=== PATIENT | female | born 1930 | race Caucasian/White ===

== ENCOUNTER 2016-04-26 09:35 | Inpatient (IN) | payer MEDICARE, OTHER ==
[~2016-04-26] VITALS: Ht 154.9 cm; Wt 79.8 kg
[2016-04-26] MEDS ORDERED: CEFTRIAXONE 1 GM/50 ML (PMX) 50 ML IVPB STA (10:13)
[2016-04-26] MEDS ORDERED: SODIUM CHLORIDE 0.9% 1L BAG IV* STA (10:13)
[2016-04-26] MEDS ORDERED: ENAL20TA PO (10:38)
[2016-04-26] MEDS ORDERED: LINA1TAB PO (10:38)
[2016-04-26] MEDS ORDERED: ASPI-664 PO (10:38)
[2016-04-26] MEDS ORDERED: PYRI50CA PO (10:39)
[2016-04-26] MEDS ORDERED: LYRI100 PO (10:39)
[2016-04-26] MEDS ORDERED: CELE100C PO (10:39)
[2016-04-26] MEDS ORDERED: METO100T13 PO (10:40)
--- NOTE | 2016-04-26 11:11 | RADRPT ---
PROCEDURE: XR Chest. CLINICAL INDICATION: Fever TECHNIQUE: Single frontal chest x-ray. COMPARISON: None. FINDINGS: There is mild bibasilar atelectasis. No acute infiltrate, pleural effusion or pneumothorax is ident ified. Cardiomediastinal silhouette is within normal limits. Aortic atherosclerotic calcification is noted. The osseous structures are remarkable for degenerative spondylosis of the spine. IMPRESSION: 1. Mild bibasilar atelectasis. 2. Aortic atherosclerosis. 3. No evidence of acute cardiopulmonary process. RPTAT: QQ .Tomas Gleason MD, Date Time Electronically viewed and signed by .Tomas Gleason MD, on 04/26/2016 11:10 .R/
[2016-04-26 11:17] LABS: ADD UMIC YES; URINE BILIRUBIN (Dip) NEGATIVE (NEGATIVE); URINE BLOOD (Dip) 3+ (NEGATIVE); URINE COLOR LT. YELLOW (YELLOW); URINE GLUCOSE (Dip) NEGATIVE (NEGATIVE); URINE KETONES (Dip) NEGATIVE (NEGATIVE); URINE LEUKOCYTE ESTERASE (Dip) 2+ (NEGATIVE); URINE NITRITE (Dip) POSITIVE (NEGATIVE); URINE TOTAL PROTEIN (Dip) 1+ (NEGATIVE); URINE UROBILINOGEN (Dip) 0.2 E.U./dL (0.1-1.0)
[2016-04-26 11:33] LABS: CHLORIDE 99 mmol/L (97-110); INR 1.11; PROTIME 14.3 Sec (12.2-14.2); PT RATIO 1.1
[2016-04-26 11:34] LABS: PARTIAL THROMBOPLASTIN TIME 28.1 Sec (25.0-35.0); SODIUM 140 mmol/L (135-144)
[2016-04-26 11:35] LABS: BACTERIA,URINE MODERATE; BASOPHILS % 0.3 % (0.0-2.0); EOSINOPHILS % 0.2 % (0.0-7.0); HEMOGLOBIN 12.3 g/dl (12.0-16.0); LYMPHOCYTES % 10.2 % (15.0-51.0); MEAN CORPUSCULAR HEMOGLOBIN 29.4 pg (29.0-33.0); MEAN CORPUSCULAR HGB CONC 33.2 g/dl (32.0-37.0); MEAN CORPUSCULAR VOLUME 88.3 fl (82.0-101.0); MEAN PLATELET VOLUME 12.2 fl (7.4-10.4); MONOCYTE # 1.4 10^3/ul (0.3-0.9); MONOCYTES % 14.6 % (0.0-11.0); NEUTROPHIL # 7.1 10^3/ul (1.6-7.5); NEUTROPHILS % 74.2 % (39.0-77.0); PLATELET COUNT 177 10^3/UL (140-415); RED BLOOD COUNT 4.19 10^6/ul (4.20-5.40); RED CELL DISTRIBUTION WIDTH 12.5 % (11.5-14.5); SQUAMOUS EPITHELIAL CELL,UR FEW; WHITE BLOOD COUNT 9.6 10^3/ul (4.8-10.8)
[2016-04-26 11:36] LABS: ALANINE AMINOTRANSFERASE 34 IU/L (13-69); ALBUMIN/GLOBULIN RATIO 1.25; ALKALINE PHOSPHATASE 84 IU/L (42-121); ANION GAP 19 (8-16); ASPARTATE AMINO TRANSFERASE 30 IU/L (15-46); BILIRUBIN,INDIRECT 0.4 mg/dl (0-1.1); BILIRUBIN,TOTAL 0.4 mg/dl (0.2-1.3); BLOOD UREA NITROGEN 17 mg/dl (7-20); CARBON DIOXIDE 26 mmol/L (21-31); CREATININE 0.57 mg/dl (0.44-1.00); GLUCOSE 154 mg/dl (70-220); TOTAL PROTEIN 7.2 g/dl (6.1-8.1)
[2016-04-26 11:37] LABS: CALCIUM 9.1 mg/dl (8.4-10.2)
[2016-04-26 11:57] LABS: TROPONIN-I < 0.012 ng/ml (0.00-0.12)
[2016-04-26] MEDS ORDERED: ACETAMINOPHEN 325 MG TAB PO PRN ×2 (13:30→14:30)
[2016-04-26] MEDS ORDERED: ONDANSETRON 4 MG INJ IV PRN ×2 (13:30→14:30)
[2016-04-26] MEDS ORDERED: MAGNESIUM HYDROXIDE 30ML CUP PO PRN (14:30)
[2016-04-26] MEDS ORDERED: hydrALAzine 20 MG INJ IV PRN (14:30)
[2016-04-26] MEDS ORDERED: BISACODYL (EC) 5 MG TAB PO PRN (14:30)
[2016-04-26] MEDS ORDERED: NACL 0.9% 3 ML SYG IV SCH (14:30)
[2016-04-26] MEDS ORDERED: HYDROCODONE/APAP (5/325) TAB PO PRN (14:30)
[2016-04-26] MEDS ORDERED: morphine 2 MG INJ IV PRN (14:30)
--- NOTE | 2016-04-26 14:35 | ERA ---
ER Documentation Chief Complaint Date/Time DATE: 04/26/16 TIME: 14:32 Chief Complaint Sent from MD for eval and labwork request fever HPI Patient is an 86-year-old female with hypertension and diabetes who presents with fever. The patient has had flank pain and pain with urination as well. The patient went to see the primary doctor today who sent the patient to the emergency department for a pyelonephritis. The symptoms have been constant. The symptoms have been there for the past 3 days. ROS All systems reviewed and are negative except as per history of present illness. Medications Home Meds Reported Medications Metoprolol Succinate* (Toprol XL*) 100 Mg Tab.sr.24h, 100 MG PO DAILY, #30 TAB 04/26/16 Celecoxib* (Celebrex*) 100 Mg Capsule, 100 MG PO DAILY, CAP 04/26/16 Pregabalin* (Lyrica*) 100 Mg Capsule, 100 MG PO BID, CAP 04/26/16 Pyridoxine Hcl* (Vitamin B-6*) 50 Mg Capsule, 50 MG PO DAILY, CAP 04/26/16 Enalapril Maleate* (Enalapril Maleate*) 20 Mg Tablet, 20 MG PO DAILY, TAB 04/26/16 Aspirin* (Aspirin* EC) 81 Mg Tablet.dr, 81 MG PO DAILY, TAB 04/26/16 Linagliptin-Metformin (Jentadueto) 2.5-500 Mg Tablet, 1 TAB PO BID, TAB 04/26/16 Allergies Allergies: Coded Allergies: No Known Allergy (Unverified , 04/26/16) PMhx/Soc Positive for hypertension and diabetes FmHx Family History: No diabetes Physical Exam Vitals Vital Signs Date Time Temp Pulse Resp B/P Pulse Ox O2 Delivery O2 Flow Rate FiO2 04/26/16 10:51 Nasal Cannula 04/26/16 09:52 100.7 107 20 144/67 95 Physical Exam Const: No acute distress Head: Atraumatic Eyes: Normal Conjunctiva ENT: Normal External Ears, Nose and Mouth. Neck: Full range of motion..~ No meningismus. Resp: Clear to auscultation bilaterally Cardio: Tachycardic rate Abd: Soft, non tender, non distended. Normal bowel sounds Skin: Pale Back: No midline or flank tenderness Ext: No cyanosis, or edema Neur: Awake and alert Psych: Normal Mood and Affect Result Diagram: 04/26/16 1031 04/26/16 1031 Results 24 hrs Laboratory Tests Test 04/26/16 10:31 04/26/16 12:19 Activated Partial Thromboplast Time 28.1Sec Alanine Aminotransferase (ALT/SGPT) 34IU/L Albumin 4.0g/dl Albumin/Globulin Ratio 1.25 Alkaline Phosphatase 84IU/L Anion Gap 19 Aspartate Amino Transf (AST/SGOT) 30IU/L Basophils # 0.010^3/ul Basophils % 0.3% Blood Urea Nitrogen 17mg/dl Calcium Level 9.1mg/dl Carbon Dioxide Level 26mmol/L Chloride Level 99mmol/L Creatinine 0.57mg/dl Direct Bilirubin 0.00mg/dl Eosinophils # 0.010^3/ul Eosinophils % 0.2% Globulin 3.20g/dl Glucose Level 154mg/dl Hematocrit 37.0% Hemoglobin 12.3g/dl INR International Normalized Ratio 1.11 Indirect Bilirubin 0.4mg/dl Lactic Acid Level 1.0mmol/L 1.1mmol/L Lymphocytes # 1.010^3/ul Lymphocytes % 10.2% Mean Corpuscular Hemoglobin 29.4pg Mean Corpuscular Hemoglobin Concent 33.2g/dl Mean Corpuscular Volume 88.3fl Mean Platelet Volume 12.2fl Monocytes # 1.410^3/ul Monocytes % 14.6% Neutrophils # 7.110^3/ul Neutrophils % 74.2% Nucleated Red Blood Cells # 0.010^3/ul Nucleated Red Blood Cells % 0.0/100WBC Platelet Count 52118^3/UL Potassium Level 4.0mmol/L Prothrombin Time 14.3Sec Prothrombin Time Ratio 1.1 Red Blood Count 4.1910^6/ul Red Cell Distribution Width 12.5% Sodium Level 140mmol/L Total Bilirubin 0.4mg/dl Total Protein 7.2g/dl Troponin I < 0.012ng/ml Urine Bacteria MODERATE Urine Bilirubin NEGATIVE Urine Clarity CLEAR Urine Color LT. YELLOW Urine Glucose NEGATIVE% Urine Hemoglobin 3+ Urine Ketones NEGATIVE Urine Leukocyte Esterase 2+ Urine Microscopic RBC 5-10/HPF Urine Microscopic WBC 10-25/HPF Urine Nitrite POSITIVE Urine Specific [place] 1.020 Urine Squamous Epithelial Cells FEW Urine Total Protein 1+ Urine Urobilinogen 0.2 E.U./dL Urine pH 5.5 White Blood Count 9.610^3/ul Current Medications Medications (Trade) Dose Ordered Sig/Boby Route PRN Reason Start Time Stop Time Status Last Admin Dose Admin Sodium Chloride 2220 ml 2,220 ml BOLUS OVER 2 HOURS STAT IV* 04/26/16 10:13 04/26/16 10:15 DC 04/26/16 10:46 Ceftriaxone Sodium (Rocephin) 50 ml @ 100 mls/hr ONCE STAT IVPB 04/26/16 10:13 04/26/16 10:43 DC 04/26/16 10:46 Procedures/MDM EKG read by me: Rate/Rhythm: Regular rate and rhythm at a normal rate Intervals: Normal Impression: No evidence of ischemia or arrhythmia Chest x-ray shows no pneumonia per radiology. Admit MDM: Patient's infectious symptoms have not stabilized and the patient is at risk of rapid decompensation. The patient will be admitted for careful hydration, antibiotic therapy, and infectious source control. Severe Sepsis criteria: Infectious source: pyelonephritis End organ damage indicated by: No end organ damage at this time Sepsis Management: Time of recognition of sepsis: 10:31 Within 3 hours of recognition: Blood cultures x 2 before broad-spectrum antibiotics: Yes 30 ml/kg NS bolus Completed Initial lactate 1.0 Repeat lactate 1.1 Time of recognition of septic shock: No septic shock Septic Shock Assessment: Any lactic acid > 4.0 No Persistent hypotension (SBP < 90 or 40 mmHg drop, MAP < 65) despite 30 mL/kg IV fluid bolus No Volume Re-assessment for Septic Shock (post 30 ml/kg bolus): No septic shock at this time Persistent Hypotension Treatment: Comfort care No Central line Not Required Vasopressor started Not required I considered further perfusion assessment with CVP measurement, SCVO2, bedside ultrasound volume assessment, passive leg raise, trial of further fluid bolus. And proceeded with 30 ml/kg fluid bolus of NSS, broad spectrum antibiotics, and admission. Accepting Care Team Current data and ongoing care discussed. Admitting Physician: Dr. Mckeon Dryer Operator(s): None Outstanding Data: Culture results Critical Care: Critical care time 35 minutes excluding all billable procedures Emergent fluid management while maintaining close respiratory support. Provision of immediate and broad-spectrum antibiotic therapy. Simultaneous assessment for possible sources in order to direct targeted therapy. Consideration for invasive and chemical support to prevent cardiopulmonary collapse. Departure Diagnosis: Primary Impression: Pyelonephritis Additional Impression: Sepsis Qualified Code: A41.9 - Sepsis, due to unspecified organism Condition: DOMINGO Olivia MD Apr 26, 2016 14:35
--- NOTE | 2016-04-26 14:38 | HP ---
Date/Time of Note Date/Time of Note DATE: 04/26/16 TIME: 14:34 Assessment/Plan VTE Prophylaxis VTE Prophylaxis Intervention: LMWH Assessment/Plan Assessment/Plan 1. Systemic inflammatory response syndrome with fever and sinus tachycardia. Etiology unclear. Most probably secondary to underlying urinary tract infection. The patient will be started on empiric antibiotics. Pancultures will be obtained. Influenza A and B screen will be done. The patient has no evidence of any septic shock at this time. The patient will be adequately hydrated. 2. Suspected urinary tract infection. Positive urinalysis. No evidence of any pyelonephritis on physical examination. Continue empiric antibiotics. Await final urine cultures. 3. Essential hypertension. The patient will be started on antihypertensives. She will also be started on as needed antihypertensives for any systolic blood pressure readings greater than 160 mmHg. 4. Type 2 diabetes mellitus. The patient's home antidiabetic medications will be resumed. A hemoglobin A1c will be obtained to evaluate the blood glucose control over the past few weeks. Plan: The patient will be admitted to inpatient medical surgical floor. The patient will be started on a carbohydrate controlled diet. The patient will be started on DVT prophylaxis and gastrointestinal prophylaxis. The patient will remain a full code. Activities will be as tolerated. The rest of the patient's management will be based on the clinical course and the results of diagnostic studies. Based on the patient's clinical presentation, she most probably requires at least 1 midnight's stay for further management and evaluation of her clinical presentation. The case and management of this patient was fully discussed with . Approximately 50 minutes was spent on the history and physical of this patient. HPI/ROS Admit Date/Time Admit Date/Time Apr 26, 2016 at 13:26 Hx of Present Illness Reason for admission: Sent in by primary care physician because of suspected pyelonephritis. This is a 86-year-old [place] female with past medical history of essential hypertension, nephrolithiasis, and type 2 diabetes mellitus who went to see her primary care physician because of fevers and shakiness that has been going on for the past 3 days. The patient denied any recent sick contacts. The patient denied any cough, runny nose, dyspnea, headaches, diarrhea, dysuria, hematuria, or pyuria. The patient denied any flank pain. She denied any headache. In the emergency room, the patient's urinalysis showed positive nitrate and positive leukocyte esterase with urine microscopic WBC of 10-25. The patient was also noticed to be febrile in the emergency room. The patient's WBC was within normal limits. The patient's renal function was within normal limits. The patient underwent a chest x-ray in the emergency room that showed mild bibasilar atelectasis and no evidence of any acute cardiopulmonary process. The patient's 12-lead EKG showed sinus tachycardia. Pancultures were obtained on this patient and the patient was given a single dose of IV ceftriaxone and IV fluids. The patient's lactic acid level was within normal limits. ROS Constitutional: chills, febrile Eyes: no complaints ENT: no complaints Respiratory: no complaints Cardiovascular: no complaints Gastrointestinal: no complaints Genitourinary: no complaints Musculoskeletal: no complaints Skin: no complaints Neurologic: no complaints Endocrine: no complaints Lymphatic: no complaints Psychological: no complaints Immunologic: no complaints PMH/Family/Social Past Medical History Medical History: diabetes, hypertension, other (Nephrolithiasis) Past Surgical History Past Surgical Hx: other (Lithotripsy) Social History The patient lives with her and son. Alcohol Use: none Smoking Status: Never smoker Drug Use: none Exam/Review of Systems Vital Signs Vitals Vital Signs Date Time Temp Pulse Resp B/P Pulse Ox O2 Delivery O2 Flow Rate FiO2 04/26/16 10:51 Nasal Cannula 04/26/16 09:52 100.7 107 20 144/67 95 Exam Exam General: Overweight, 86 year-old female lying in bed in no apparent distress. HEENT: Normocephalic, atraumatic. Eyes: Anicteric sclerae, conjunctivae clear. ENT: Nasal septum midline, oral mucosa moist. Neck supple, no JVD noticed. Respiratory: Bilaterally clear breath sounds. No use of accessory muscles of respiration. No adventitious breath sounds. Cardiovascular: S1, S2 heard. No murmurs or gallops. Abdomen: Soft, nontender, and nondistended. Bowel sounds positive in all 4 quadrants. Genitourinary: Deferred. Extremities: No cyanosis, no clubbing, no edema. Peripheral pulses palpable. Neurologic: Cranial nerves II through XII grossly intact. The patient is awake, alert, and oriented. Skin: Normal skin turgor. No skin rashes. Labs Result Diagram: 04/26/16 1031 04/26/16 1031 Medications Medications Current Medications Sodium Chloride (NS) 1,000 ml @ 100 mls/hr Q10H IV ; Start 04/26/16 at 14:21; Status UNV Ondansetron HCl (Zofran Inj) 4 mg Q6H PRN IV NAUSEA AND/OR VOMITING; Start 04/26 at 14:30; Status UNV Acetaminophen (Tylenol Tab) 650 mg Q6H PRN PO PAIN LEVEL 1-3 OR FEVER; Start at 14:30; Status UNV Acetaminophen/ Hydrocodone Bitart ([place] (5/325)) 1 tab Q6H PRN PO MODERATE PAIN LEVEL 4-6; Start 04/26/16 at 14:30; Status UNV Morphine Sulfate (morphine) 2 mg Q4H PRN IV SEVERE PAIN LEVEL 7-10; Start at 14:30; Status UNV Magnesium Hydroxide (Milk Of Mag) 30 ml DAILY PRN PO CONSTIPATION; Start at 14:30; Status UNV Bisacodyl (Dulcolax) 5 mg DAILY PRN PO CONSTIPATION; Start 04/26/16 at 14:30; Status UNV Famotidine (Pepcid) 20 mg Q12 PO ; Start 04/26/16 at 21:00; Status UNV Enoxaparin Sodium (Lovenox) 40 mg DAILY SC ; Start 04/27/16 at 09:00; Status UNV Hydralazine HCl 10 mg 10 mg Q6H PRN IV SBP>160; Start 04/26/16 at 14:30; Status UNV Ceftriaxone Sodium (Rocephin) 50 ml @ 100 mls/hr Q24H IVPB ; Start 04/26/16 at 14:30; Status UNV Procedures Procedures CXR IMPRESSION: 1. Mild bibasilar atelectasis. 2. Aortic atherosclerosis. 3. No evidence of acute cardiopulmonary process. Twelve-Lead EKG Sinus tachycardia. GLENROY KENYON NP Apr 26, 2016 14:38 GLENROY KENYON NP Apr 26, 2016 14:38
[2016-04-26] MEDS: CEFTRIAXONE 1 GM/50 ML (PMX) 50 ML IVPB SCH (14:59)
[2016-04-26] MEDS: SOD CHLORIDE 0.9% 1,000 ML IV SCH (14:59)
[2016-04-26 15:00] VITALS: BP 170/77; PULSE 111; RESP 24
[2016-04-26] MEDS ORDERED: DEXTROSE 50% 50 ML SYRINGE IV PRN ×2 (15:00)
[2016-04-26] MEDS ORDERED: GLUCOSE GEL 15 GRAM TUBE PO PRN ×2 (15:00)
[2016-04-26] MEDS ORDERED: GLUCOSE GEL 15 GRAM TUBE BUCCAL PRN (15:00)
[2016-04-26] MEDS ORDERED: GLUCAGON 1 MG INJ IM PRN (15:00)
[2016-04-26 15:30] VITALS: Ht 154.9 cm; Wt 79.8 kg
[2016-04-26 16:34] VITALS: BP 155/71; PULSE 108
[2016-04-26 20:01] VITALS: BP 140/63; RESP 20
[2016-04-26] MEDS: metFORMIN 500 MG TAB PO SCH (20:12)
[2016-04-26] MEDS: PREGABALIN 100 MG CAP PO SCH (20:12)
[2016-04-26] MEDS: FAMOTIDINE 20 MG TAB PO SCH (20:12)
[2016-04-26] MEDS: LINAGLIPTIN 5 MG TABLET PO SCH (20:12)
[2016-04-26] MEDS ORDERED: ALBUTEROL/IPRATROPIUM (NEB) 3 ML AMP HHN PRN (20:30)
[2016-04-26] MEDS ORDERED: SOD CHLORIDE 0.9% 500 ML IV ONE (20:30)
[2016-04-26] MEDS: ZOLPIDEM 5 MG TAB PO PRN (20:40)
[2016-04-26 23:25] VITALS: BP 134/63; PULSE 97
[2016-04-27] MEDS: SOD CHLORIDE 0.9% 1,000 ML IV SCH ×4 (00:21→18:53)
[2016-04-27 06:16] LABS: ADD SCAN DIFF NO; BASOPHILS % 0.4 % (0.0-2.0); EOSINOPHILS # 0.1 10^3/ul (0.0-0.5); EOSINOPHILS % 0.7 % (0.0-7.0); HEMATOCRIT 33.1 % (37.0-47.0); HEMOGLOBIN 10.5 g/dl (12.0-16.0); LYMPHOCYTES % 13.2 % (15.0-51.0); MEAN CORPUSCULAR HEMOGLOBIN 29.2 pg (29.0-33.0); MEAN CORPUSCULAR HGB CONC 31.7 g/dl (32.0-37.0); MEAN CORPUSCULAR VOLUME 92.2 fl (82.0-101.0); MEAN PLATELET VOLUME 11.6 fl (7.4-10.4); MONOCYTE # 1.3 10^3/ul (0.3-0.9); MONOCYTES % 17.8 % (0.0-11.0); NEUTROPHILS % 67.5 % (39.0-77.0); PLATELET COUNT 153 10^3/UL (140-415); RED BLOOD COUNT 3.59 10^6/ul (4.20-5.40); RED CELL DISTRIBUTION WIDTH 12.7 % (11.5-14.5); WHITE BLOOD COUNT 7.4 10^3/ul (4.8-10.8)
[2016-04-27 06:32] LABS: POTASSIUM 3.9 mmol/L (3.5-5.1)
[2016-04-27 06:34] LABS: CREATININE 0.55 mg/dl (0.44-1.00)
[2016-04-27 06:35] LABS: ALBUMIN/GLOBULIN RATIO 1.11; BILIRUBIN,INDIRECT 0.2 mg/dl (0-1.1); BILIRUBIN,TOTAL 0.2 mg/dl (0.2-1.3); CALCIUM 8.2 mg/dl (8.4-10.2); TOTAL PROTEIN 5.7 g/dl (6.1-8.1)
[2016-04-27 06:43] LABS: CHOL/HDL RATIO 5.2 RATIO; MAGNESIUM 1.5 mg/dl (1.7-2.5)
--- NOTE | 2016-04-27 07:06 | RADRPT ---
PROCEDURE: US Retroperitoneum. CLINICAL INDICATION: Abnormal renal function. TECHNIQUE: Multiple sonographic images of the retroperitoneum were obtained. Evaluation of the ki dneys and bladder was performed using a curved array transducer. The images were reviewed on a PACS workstation. COMPARISON: No prior studies are available for comparison. FINDINGS: The right kidney measures 10.5 centimeters and the left kidney measures 12.1 centimeters. No hydro nephrosis or renal calculi are seen. The kidneys are normal in echogenicity. A 4 cm probable simp le cyst is seen in the upper pole of the left kidney. The bladder is unremarkable in appearance. IMPRESSION: Probable simple left renal cyst. Otherwise unremarkable study.. RPTAT: HLBE Physician Beatrice Date Time Electronically viewed and signed by Sherine Varela Physician on 04/27/2016 07:06 LE/
[2016-04-27] MEDS ORDERED: MAGNESIUM SULFATE 2 GM/50 ML 50 ML IVPB ONE ×2 (07:30)
[2016-04-27 07:37] VITALS: BP 122/56; RESP 18
[2016-04-27] MEDS: PREGABALIN 100 MG CAP PO SCH ×2 (09:33→21:07)
[2016-04-27] MEDS: CELECOXIB 100 MG CAP PO SCH (09:33)
[2016-04-27] MEDS: ASPIRIN (EC) 81 MG TAB PO SCH (09:34)
[2016-04-27] MEDS: PYRIDOXINE 50 MG TAB PO SCH (09:34)
[2016-04-27] MEDS: FAMOTIDINE 20 MG TAB PO SCH ×2 (09:35→21:10)
[2016-04-27] MEDS: LINAGLIPTIN 5 MG TABLET PO SCH ×2 (09:35→21:11)
[2016-04-27] MEDS: METOPROLOL (XL) 100 MG TAB PO SCH (09:35)
[2016-04-27] MEDS: metFORMIN 500 MG TAB PO SCH ×2 (09:36→21:00)
[2016-04-27] MEDS: ENALAPRIL 20 MG TAB PO SCH (09:36)
[2016-04-27] MEDS: ENOXAPARIN 40 MG/0.4 ML SYG SC SCH (10:06)
--- NOTE | 2016-04-27 10:25 | PN ---
Date/Time of Note Date/Time of Note DATE: 04/27/16 TIME: 10:22 Assessment/Plan VTE Prophylaxis VTE Prophylaxis Intervention: LMWH Lines/Catheters IV [facility] Peripheral IV Assessment/Plan Chief Complaint/Hosp Course 1. Systemic inflammatory response syndrome with fever and sinus tachycardia. Etiology unclear. Most probably secondary to underlying urinary tract infection. Pancultures pending. Influenza A and B screen negative. The patient has no evidence of any septic shock at this time. The patient will be adequately hydrated. 2. Suspected urinary tract infection. Positive urinalysis. No evidence of any pyelonephritis on physical examination or renal ultrasound. Continue empiric antibiotics. Await final urine cultures. 3. Essential hypertension. The patient will be continued on antihypertensives including PRN antihypertensives for any systolic blood pressure readings greater than 160 mmHg. 4. Type 2 diabetes mellitus. The patient on home antidiabetic regimen. Pending hemoglobin A1c. 5. Fluids, electrolytes, and nutrition. Carbohydrate controlled diet. 6. DVT prophylaxis. Subcutaneous Lovenox. 7. Gastrointestinal prophylaxis. Histamine 2 receptor blockers. 8. Plan. Continue empiric antibiotics. Await final cultures. Replete magnesium. Case discussed with Dr. Srinivasan. Plan of care was explained to the patient's son who was at the bedside. Problems: Subjective 24 Hr Interval Summary Free Text/Dictation Had a low grade fever in the AM. Exam/Review of Systems Vital Signs Vitals Vital Signs Date Time Temp Pulse Resp B/P Pulse Ox O2 Delivery O2 Flow Rate FiO2 04/27/16 07:37 99.4 85 18 122/56 99 04/26/16 23:25 Nasal Cannula 2.0 Intake and Output 04/26/16 04/26/16 04/27/16 14:59 22:59 06:59 Intake Total 760 ml 2190 ml Output Total 1250 ml Balance 760 ml 940 ml Exam General: Overweight, 86 year-old female lying in bed in no apparent distress. HEENT: Normocephalic, atraumatic. Eyes: Anicteric sclerae, conjunctivae clear. ENT: Nasal septum midline, oral mucosa moist. Neck supple, no JVD noticed. Respiratory: Bilaterally clear breath sounds. No use of accessory muscles of respiration. No adventitious breath sounds. Cardiovascular: S1, S2 heard. No murmurs or gallops. Abdomen: Soft, nontender, and nondistended. Bowel sounds positive in all 4 quadrants. Genitourinary: Deferred. Extremities: No cyanosis, no clubbing, no edema. Peripheral pulses palpable. Neurologic: Cranial nerves II through XII grossly intact. The patient is awake, alert, and oriented. Skin: Normal skin turgor. No skin rashes. Results Result Diagram: 04/27/16 0525 04/27/16 0525 Results 24 hrs Laboratory Tests Test 04/26/16 10:31 04/26/16 12:19 04/26/16 14:45 04/26/16 20:10 Activated Partial Thromboplast Time 28.1 Alanine Aminotransferase (ALT/SGPT) 34 Albumin 4.0 Albumin/Globulin Ratio 1.25 Alkaline Phosphatase 84 Anion Gap 19 H Aspartate Amino Transf (AST/SGOT) 30 Basophils # 0.0 Basophils % 0.3 Blood Urea Nitrogen 17 Calcium Level 9.1 Carbon Dioxide Level 26 Chloride Level 99 Creatinine 0.57 Direct Bilirubin 0.00 Eosinophils # 0.0 Eosinophils % 0.2 Globulin 3.20 Glucose Level 154 Hematocrit 37.0 Hemoglobin 12.3 INR International Normalized Ratio 1.11 Indirect Bilirubin 0.4 Lactic Acid Level 1.0 1.1 1.0 Lymphocytes # 1.0 Lymphocytes % 10.2 L Mean Corpuscular Hemoglobin 29.4 Mean Corpuscular Hemoglobin Concent 33.2 Mean Corpuscular Volume 88.3 Mean Platelet Volume 12.2 H Monocytes # 1.4 H Monocytes % 14.6 H Neutrophils # 7.1 Neutrophils % 74.2 Nucleated Red Blood Cells # 0.0 Nucleated Red Blood Cells % 0.0 Platelet Count 177 Potassium Level 4.0 Prothrombin Time 14.3 H Prothrombin Time Ratio 1.1 Red Blood Count 4.19 L Red Cell Distribution Width 12.5 Sodium Level 140 Total Bilirubin 0.4 Total Protein 7.2 Troponin I < 0.012 Urine Bacteria MODERATE Urine Bilirubin NEGATIVE Urine Clarity CLEAR Urine Color LT. YELLOW Urine Glucose NEGATIVE Urine Hemoglobin 3+ H Urine Ketones NEGATIVE Urine Leukocyte Esterase 2+ H Urine Microscopic RBC 5-10 Urine Microscopic WBC 10-25 Urine Nitrite POSITIVE H Urine Specific [place] 1.020 Urine Squamous Epithelial Cells FEW Urine Total Protein 1+ H Urine Urobilinogen 0.2 E.U./dL Urine pH 5.5 White Blood Count 9.6 Bedside Glucose 223 H Test 04/27/16 05:25 04/27/16 09:29 Alanine Aminotransferase (ALT/SGPT) 38 Albumin 3.0 #L Albumin/Globulin Ratio 1.11 Alkaline Phosphatase 56 Anion Gap 14 Aspartate Amino Transf (AST/SGOT) 25 Basophils # 0.0 Basophils % 0.4 Blood Urea Nitrogen 13 Calcium Level 8.2 L Carbon Dioxide Level 27 Chloride Level 106 Cholesterol Level 131 Cholesterol/HDL Ratio 5.2 Creatinine 0.55 Direct Bilirubin 0.00 Eosinophils # 0.1 Eosinophils % 0.7 Free Thyroxine 0.85 Globulin 2.70 Glucose Level 106 # HDL Cholesterol 25 L Hematocrit 33.1 L Hemoglobin 10.5 L Indirect Bilirubin 0.2 LDL Cholesterol, Calculated 81 Lactic Acid Level 0.9 Lymphocytes # 1.0 Lymphocytes % 13.2 L Magnesium Level 1.5 L Mean Corpuscular Hemoglobin 29.2 Mean Corpuscular Hemoglobin Concent 31.7 L Mean Corpuscular Volume 92.2 Mean Platelet Volume 11.6 H Monocytes # 1.3 H Monocytes % 17.8 H Neutrophils # 5.0 Neutrophils % 67.5 Nucleated Red Blood Cells # 0.0 Nucleated Red Blood Cells % 0.0 Phosphorus Level 3.0 Platelet Count 153 Potassium Level 3.9 Red Blood Count 3.59 L Red Cell Distribution Width 12.7 Sodium Level 143 Total Bilirubin 0.2 Total Protein 5.7 #L Triglycerides Level 126 White Blood Count 7.4 # Bedside Glucose 175 Medications Medications Current Medications Sodium Chloride (NS) 1,000 ml @ 100 mls/hr Q10H IV Last administered on 05:13; Admin Dose 100 MLS/HR; Start 04/26/16 at 14:21 Ondansetron HCl (Zofran Inj) 4 mg Q6H PRN IV NAUSEA AND/OR VOMITING Last administered on 04/26/16 17:27; Admin Dose 4 MG; Start 04/26/16 at 14:30 Acetaminophen (Tylenol Tab) 650 mg Q6H PRN PO PAIN LEVEL 1-3 OR FEVER Last administered on 04/26/16 23:34; Admin Dose 650 MG; Start 04/26/16 at 14:30 Acetaminophen/ Hydrocodone Bitart ([place] (5/325)) 1 tab Q6H PRN PO MODERATE PAIN LEVEL 4-6; Start 04/26/16 at 14:30 Morphine Sulfate (morphine) 2 mg Q4H PRN IV SEVERE PAIN LEVEL 7-10; Start at 14:30 Magnesium Hydroxide (Milk Of Mag) 30 ml DAILY PRN PO CONSTIPATION; Start at 14:30 Bisacodyl (Dulcolax) 5 mg DAILY PRN PO CONSTIPATION; Start 04/26/16 at 14:30 Famotidine (Pepcid) 10 mg Q12 PO Last administered on 04/27/16 09:35; Admin Dose 10 MG; Start 04/26/16 at 21:00 Enoxaparin Sodium (Lovenox) 40 mg DAILY SC Last administered on 04/27/16 10:06 ; Admin Dose 40 MG; Start 04/27/16 at 09:00 Hydralazine HCl 10 mg 10 mg Q6H PRN IV SBP>160; Start 04/26/16 at 14:30 Ceftriaxone Sodium (Rocephin) 50 ml @ 100 mls/hr Q24H IVPB Last administered on 04/26/16 14:59; Admin Dose 100 MLS/HR; Start 04/26/16 at 14:30 Aspirin (Halfprin) 81 mg DAILY PO Last administered on 04/27/16 09:34; Admin Dose 81 MG; Start 04/27/16 at 09:00 Celecoxib (Celebrex) 100 mg DAILY PO Last administered on 04/27/16 09:33; Admin Dose 100 MG; Start 04/27/16 at 09:00 Enalapril Maleate (Vasotec) 20 mg DAILY PO Last administered on 04/27/16 09:36 ; Admin Dose 20 MG; Start 04/27/16 at 09:00 Metoprolol Succinate (Toprol Xl) 100 mg DAILY PO Last administered on 09:35; Admin Dose 100 MG; Start 04/27/16 at 09:00 Pregabalin (Lyrica) 100 mg BID PO Last administered on 04/27/16 09:33; Admin Dose 100 MG; Start 04/26/16 at 21:00 Pyridoxine HCl (Vitamin B6) 50 mg DAILY PO Last administered on 04/27/16 09:34 ; Admin Dose 50 MG; Start 04/27/16 at 09:00 Linagliptin (Tradjenta) 2.5 mg BID PO Last administered on 04/27/16 09:35; Admin Dose 2.5 MG; Start 04/26/16 at 21:00 Metformin HCl (Glucophage) 500 mg BID PO Last administered on 04/27/16 09:36; Admin Dose 500 MG; Start 04/26/16 at 21:00 Miscellaneous Information 1 ea NOTE XX ; Start 04/26/16 at 15:00 Glucose (Glutose) 15 gm Q15M PRN PO DECREASED GLUCOSE; Start 04/26/16 at 15:00 Glucose (Glutose) 22.5 gm Q15M PRN PO DECREASED GLUCOSE; Start 04/26/16 at 15:00 Dextrose (D50w Syringe) 25 ml Q15M PRN IV DECREASED GLUCOSE; Start 04/26/16 at 15:00 Dextrose (D50w Syringe) 50 ml Q15M PRN IV DECREASED GLUCOSE; Start 04/26/16 at 15:00 Glucagon (Glucagen) 1 mg Q15M PRN IM DECREASED GLUCOSE; Start 04/26/16 at 15:00 Glucose (Glutose) 15 gm Q15M PRN BUCCAL DECREASED GLUCOSE; Start 04/26/16 at 15: 00 Zolpidem Tartrate (Ambien) 10 mg HS PRN PO INSOMNIA Last administered on 20:40; Admin Dose 10 MG; Start 04/26/16 at 20:30 GLENROY KENYON NP Apr 27, 2016 10:25
[2016-04-27] MEDS: CEFTRIAXONE 1 GM/50 ML (PMX) 50 ML IVPB SCH (14:15)
[2016-04-27 19:46] VITALS: BP 146/67; RESP 18
[2016-04-27] MEDS: ZOLPIDEM 5 MG TAB PO PRN (21:14)
[2016-04-28] MEDS: SOD CHLORIDE 0.9% 1,000 ML IV SCH (05:22)
[2016-04-28 06:05] LABS: ADD SCAN DIFF NO; BASOPHILS % 0.4 % (0.0-2.0); EOSINOPHILS # 0.1 10^3/ul (0.0-0.5); EOSINOPHILS % 1.5 % (0.0-7.0); HEMATOCRIT 33.2 % (37.0-47.0); HEMOGLOBIN 10.7 g/dl (12.0-16.0); LYMPHOCYTES # 1.4 10^3/ul (0.8-2.9); LYMPHOCYTES % 17.2 % (15.0-51.0); MEAN CORPUSCULAR HEMOGLOBIN 29.9 pg (29.0-33.0); MEAN CORPUSCULAR HGB CONC 32.2 g/dl (32.0-37.0); MEAN CORPUSCULAR VOLUME 92.7 fl (82.0-101.0); MEAN PLATELET VOLUME 11.6 fl (7.4-10.4); MONOCYTE # 1.2 10^3/ul (0.3-0.9); MONOCYTES % 14.5 % (0.0-11.0); NEUTROPHIL # 5.3 10^3/ul (1.6-7.5); NEUTROPHILS % 65.9 % (39.0-77.0); PLATELET COUNT 168 10^3/UL (140-415); RED BLOOD COUNT 3.58 10^6/ul (4.20-5.40); RED CELL DISTRIBUTION WIDTH 12.7 % (11.5-14.5); WHITE BLOOD COUNT 8.1 10^3/ul (4.8-10.8)
[2016-04-28 06:26] LABS: CREATININE 0.49 mg/dl (0.44-1.00); MAGNESIUM 1.6 mg/dl (1.7-2.5); PHOSPHORUS 3.1 mg/dl (2.5-4.9)
[2016-04-28 06:27] LABS: CALCIUM 8.6 mg/dl (8.4-10.2)
[2016-04-28 07:38] VITALS: BP 155/71; RESP 18
[2016-04-28] MEDS: PREGABALIN 100 MG CAP PO SCH (09:02)
[2016-04-28] MEDS: LINAGLIPTIN 5 MG TABLET PO SCH (09:03)
[2016-04-28] MEDS: METOPROLOL (XL) 100 MG TAB PO SCH (09:03)
[2016-04-28] MEDS: FAMOTIDINE 20 MG TAB PO SCH (09:03)
[2016-04-28] MEDS: ENALAPRIL 20 MG TAB PO SCH (09:03)
[2016-04-28] MEDS: metFORMIN 500 MG TAB PO SCH (09:03)
[2016-04-28] MEDS: PYRIDOXINE 50 MG TAB PO SCH (09:04)
[2016-04-28] MEDS: ASPIRIN (EC) 81 MG TAB PO SCH (09:04)
[2016-04-28] MEDS: CELECOXIB 100 MG CAP PO SCH (09:04)
[2016-04-28 09:07] VITALS: BP 165/75; PULSE 100
[2016-04-28] MEDS: ENOXAPARIN 40 MG/0.4 ML SYG SC SCH (09:20)
--- NOTE | 2016-04-28 10:17 | PDOCDIS ---
Discharge Instructions DIAGNOSIS Discharge Diagnosis: Urinary tract infection. CONDITION Patient Condition: Good HOME CARE INSTRUCTIONS: Special Diet: carb control OTHER ORDERS: Other Orders: 1. Resume home medications. Complete the course of antibiotics. 2. Resume activities as tolerated. 3. Follow a carbohydrate controlled diet. 4. Follow-up with your primary care physician in 2 weeks. 5. Please call your primary care physician or go to the nearest emergency room if you have persistent fevers, flank pain, or any other unusual signs/symptoms. GLENROY KENYON NP Apr 28, 2016 10:17
[2016-04-28] MEDS ORDERED: CEPH500C PO (10:21)
--- NOTE | 2016-04-28 10:34 | DS ---
Date/Time of Note Date/Time of Note DATE: 04/28/16 TIME: 10:30 Discharge Summary Admission/Discharge Info Admit Date/Time Apr 26, 2016 at 13:26 Discharge Date/Time Final Diagnosis 1. Status post sepsis secondary to urinary tract infection. 2. Urinary tract infection. 3. Type 2 diabetes mellitus. 4. Essential hypertension. Patient Condition: Stable Procedures Renal Ultrasound IMPRESSION: Probable simple left renal cyst. Otherwise unremarkable study.. CXR IMPRESSION: 1. Mild bibasilar atelectasis. 2. Aortic atherosclerosis. 3. No evidence of acute cardiopulmonary process. Hx of Present Illness Reason for admission: Sent in by primary care physician because of suspected pyelonephritis. This is a 86-year-old [place] female with past medical history of essential hypertension, nephrolithiasis, and type 2 diabetes mellitus who went to see her primary care physician because of fevers and shakiness that has been going on for the previous 3 days. The patient denied any recent sick contacts. The patient denied any cough, runny nose, dyspnea, headaches, diarrhea, dysuria, hematuria, or pyuria. The patient denied any flank pain. She denied any headache. In the emergency room, the patient's urinalysis showed positive nitrate and positive leukocyte esterase with urine microscopic WBC of 10-25. The patient was also noticed to be febrile in the emergency room. The patient's WBC was within normal limits. The patient's renal function was within normal limits. The patient underwent a chest x-ray in the emergency room that showed mild bibasilar atelectasis and no evidence of any acute cardiopulmonary process. The patient's 12-lead EKG showed sinus tachycardia. Pancultures were obtained on this patient and the patient was given a single dose of IV ceftriaxone and IV fluids. The patient's lactic acid level was within normal limits. Hospital Course The patient was admitted to inpatient medical surgical floor. The patient was started on aggressive IV fluids. The patient's lactic acid levels remained negative. The patient's urine culture showed positive E. coli that was resistant to ampicillin and Bactrim. The patient was maintained on ceftriaxone. The patient was evaluated for any pyelonephritis. The patient had no evidence of any pyelonephritis on physical examination and with radiologic evaluation. The patient had no evidence of any septic shock. The patient's presenting symptomatology was concluded to be secondary to underlying urinary tract infection with E. coli. The patient has underlying essential hypertension. The patient was maintained on antihypertensives for the same. The patient's blood pressure was fairly well -controlled. Patient has a history of type 2 diabetes mellitus. She was maintained on antidiabetic medications. The patient's hemoglobin A1c was found to be 6.8. The patient's fasting lipid panel was satisfactory, except she had a low HDL. The patient had a stable hospital course. The patient is stable to be discharged home. The patient remained afebrile for more than 24 hours. Patient denied any complaints at the time of discharge. Discharge Instructions 1. Resume home medications. Complete the course of antibiotics. 2. Resume activities as tolerated. 3. Follow a carbohydrate controlled diet. 4. Follow-up with your primary care physician in 2 weeks. 5. Please call your primary care physician or go to the nearest emergency room if you have persistent fevers, flank pain, or any other unusual signs/symptoms. The patient verbalized understanding of her discharge instructions. The case and management of this patient was fully discussed with . Approximately 35 minutes was spent on coordinating the discharge on this patient. 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 Reported Medications Metoprolol Succinate* (Toprol XL*) 100 Mg Tab.sr.24h, 100 MG PO DAILY, #30 TAB 04/26/16 Celecoxib* (Celebrex*) 100 Mg Capsule, 100 MG PO DAILY, CAP 04/26/16 Pregabalin* (Lyrica*) 100 Mg Capsule, 100 MG PO BID, CAP 04/26/16 Pyridoxine Hcl* (Vitamin B-6*) 50 Mg Capsule, 50 MG PO DAILY, CAP 04/26/16 Enalapril Maleate* (Enalapril Maleate*) 20 Mg Tablet, 20 MG PO DAILY, TAB 04/26/16 Aspirin* (Aspirin* EC) 81 Mg Tablet.dr 81 MG PO DAILY, TAB 04/26/16 Linagliptin-Metformin (Jentadueto) 2.5-500 Mg Tablet, 1 TAB PO BID, TAB 04/26/16 Follow-up Plan Follow-up with your primary care physician in 2 weeks. Pending Labs Laboratory Tests Test 04/27/16 21:00 04/28/16 05:06 04/28/16 07:54 Bedside Glucose 120mg/dL (70-220) 125mg/dL (70-220) Anion Gap 16 (8-16) Basophils # 0.010^3/ul (0.0-0.1) Basophils % 0.4% (0.0-2.0) Blood Urea Nitrogen 8mg/dl (7-20) Calcium Level 8.6mg/dl (8.4-10.2) Carbon Dioxide Level 28mmol/L (21-31) Chloride Level 105mmol/L (97-110) Creatinine 0.49mg/dl (0.44-1.00) Eosinophils # 0.110^3/ul (0.0-0.5) Eosinophils % 1.5% (0.0-7.0) Glucose Level 121mg/dl (70-220) Hematocrit 33.2% (37.0-47.0) Hemoglobin 10.7g/dl (12.0-16.0) Lymphocytes # 1.410^3/ul (0.8-2.9) Lymphocytes % 17.2% (15.0-51.0) Magnesium Level 1.6mg/dl (1.7-2.5) Mean Corpuscular Hemoglobin 29.9pg (29.0-33.0) Mean Corpuscular Hemoglobin Concent 32.2g/dl (32.0-37.0) Mean Corpuscular Volume 92.7fl (82.0-101.0) Mean Platelet Volume 11.6fl (7.4-10.4) Monocytes # 1.210^3/ul (0.3-0.9) Monocytes % 14.5% (0.0-11.0) Neutrophils # 5.310^3/ul (1.6-7.5) Neutrophils % 65.9% (39.0-77.0) Nucleated Red Blood Cells # 0.010^3/ul (0.0-0.0) Nucleated Red Blood Cells % 0.0/100WBC (0.0-0.0) Phosphorus Level 3.1mg/dl (2.5-4.9) Platelet Count 15233^3/UL (140-415) Potassium Level 4.0mmol/L (3.5-5.1) Red Blood Count 3.5810^6/ul (4.20-5.40) Red Cell Distribution Width 12.7% (11.5-14.5) Sodium Level 145mmol/L (135-144) White Blood Count 8.110^3/ul (4.8-10.8) Name: RADHA IBARRA Age/Sex: 86/F Attend Dr: PAXTON DELVALLE MD Acct: [id number] MR# : [id number] : 1930 Location: [id number] Admit: 04/26/16 Specimen: [id number] Status: Complete Destiny: 04/26/16-1 Rcvd: 04/26-1106 Source: [facility] Sp Descrip: Procedure Result Microbiology URINE CULTURE Final Organism 1 ESCHERICHIA COLI COLONY COUNT >100,000 CFU/ml E COLI M.I.C. RX --------- --- AMPICILLIN >=32 R CEFAZOLIN S CEFOTAXIME S CIPROFLOXACIN <=0.25 S GENTAMICIN <=1 S LEVOFLOXACIN <=0.12 S NITROFURANTOIN <=16 S TOBRAMYCIN <=1 S TRIMETHOPRIM/SULFAMETHOXAZOLE >=320 R GLENROY KENYON NP Apr 28, 2016 10:34
[2016-04-28] MEDS ORDERED: MAGNESIUM CHLORIDE (SR) 64 MG TAB PO ONE (11:00)
== END 2016-04-28 11:35 | disposition home or self-care (01) | DRG 872 ==
LOC: E/R 09:35 → MS2 13:26
PROVIDERS: ADMIT Family Medicine; ATTEND Family Medicine
DX: A41.9 Sepsis, unspecified organism (principal); E11.9 Type 2 diabetes mellitus without complications; N39.0 Urinary tract infection, site not specified; I10 Essential (primary) hypertension; B96.20 Unspecified Escherichia coli [E. coli] as the cause of diseases classified elsewhere; Z79.82 Long term (current) use of aspirin; Z79.4 Long term (current) use of insulin; Z16.11 Resistance to penicillins; Z16.29 Resistance to other single specified antibiotic
CPT/HCPCS: 36415; 71010; 76775; 80048; 80053; 80061; 81001; 81003; 82962; 83036; 83605; 83735; 84100; 84439; 84484; 85025; 85610; 85730; 87040; 87086; 87400; 93005; 96374; J0360; J0696; J1650; J2405; J3475; J7030; J7040